=== PATIENT | female | born 1945 | race Hispanic/Latino ===

== ENCOUNTER 2020-05-15 07:00 | Day surgery (SDC) | payer OTHER ==
[2020-05-15] VITALS (7 sets, daily range): BP systolic 102–166; BP diastolic 55–94
[~2020-05-15] VITALS: Ht 154.9 cm; Wt 67.6 kg
[~2020-05-15 07:00] MED LIST: CARV25TA PO; LEVO75CA5 PO; LOSA1TAB42 PO; OMEP40CA13 PO; SODIUM CHLORIDE 0.9% 1000ML 1,000 ML IV ONE; TRAZ-185 PO
[2020-05-15] MEDS ORDERED: PROPOFOL 10 MG/ML 20ML VIAL IV ONE (09:58)
[2020-05-15] MEDS ORDERED: GLYCOPYRROLATE 1 MG/5 ML SYRINGE ONE (10:21)
--- NOTE | 2020-05-15 10:48 | NUR ---
STOPPED TIME OF FLUIDS NOW 1047AM
== END 2020-05-15 10:55 | disposition home or self-care (01) ==
LOC: DAH 07:00 → ENDO 07:00
PROVIDERS: ATTEND Internal Medicine Gastroenterology
DX: R93.3 Abnormal findings on diagnostic imaging of other parts of digestive tract (principal); K29.50 Unspecified chronic gastritis without bleeding; K31.89 Other diseases of stomach and duodenum; R93.5 Abnormal findings on diagnostic imaging of other abdominal regions, including retroperitoneum; I10 Essential (primary) hypertension; K21.9 Gastro-esophageal reflux disease without esophagitis; E03.9 Hypothyroidism, unspecified; F41.9 Anxiety disorder, unspecified; M81.0 Age-related osteoporosis without current pathological fracture; M19.90 Unspecified osteoarthritis, unspecified site; Z90.49 Acquired absence of other specified parts of digestive tract; Z90.710 Acquired absence of both cervix and uterus; Z98.84 Bariatric surgery status; Z79.899 Other long term (current) drug therapy; Z20.828 Contact with and (suspected) exposure to other viral communicable diseases
CPT/HCPCS: 43237; 43239; A4215 ×2; A4221; A4222; A4620; A4657; A4663; C9803; J2704; J3490; J7030; U0003